=== PATIENT | male | born 1995 | race Caucasian/White ===

== ENCOUNTER 2020-05-06 09:19 | Emergency (ER) | payer OTHER, SELFPAY ==
[2020-05-06 09:29] VITALS: BP 104/60; PULSE 78; RESP 20; TEMP 36.7; O2SAT 100
--- NOTE | 2020-05-06 09:44 | ED.URI ---
HPI - URI/Sore Throat General Chief Complaint: Upper Respiratory Infection Stated Complaint: cough/sore throat/nausea Time Seen by Provider: 05/06/20 09:45 Source: patient and RN notes reviewed Mode of arrival: ambulatory Limitations: no limitations History of Present Illness HPI Narrative: 24 old male presents with concern for cough, sore throat. Reports exposure to strep throat. He denies any rhinorrhea, nasal congestion, fever, body aches, chills. Reports taking [id number] cough medicine with no relief MD elicited complaint: cough and sore throat Related Data Allergies Allergy/AdvReac Type Severity Reaction Status Date / Time No Known Allergies Allergy Unverified 05/06/20 09:40 Review of Systems Review of Systems: Narrative: CONSTITUTIONAL: Denies malaise, chills, sweats, or fever. EYES: Denies visual changes, redness, or discharge. ENT: Reports sore throat. Denies rhinorrhea, congestion, sinus pain, otalgia CARDIOVASCULAR: Denies chest pain, palpitations, or edema. RESPIRATORY: Reports cough. Denies dyspnea. GASTROINTESTINAL: Denies abdominal pain, nausea, vomiting, diarrhea SKIN: Denies rash or itching. MUSCULOSKELETAL: Denies myalgia. NEUROLOGIC: Denies headache. All systems reviewed & are unremarkable except as noted in HPI and below PMFSH Comments At time of signature, agree with nursing past medical, surgical, social and family history. There is no relevant family history pertinent to the presenting complaint Exam Narrative: Exam Narrative: GENERAL: Well-appearing, well-nourished, and in no acute distress. HEAD: Normocephalic EYES: PERRLA, conjunctivae clear ENT: Nares clear, turbinates erythematous, clear discharge. Mucous membranes moist. TM pearly kate with dull light reflex bilaterally; no tragal tenderness. Oropharynx mildly erythematous without lesions. Tonsils not enlarged and without exudate, no drooling, no hoarseness, no trismus, uvula midline. NECK: Supple. No lymphadenopathy CHEST: Clear to auscultation, breath sounds equal. No wheezing, rhonchi, rales, or stridor. No respiratory distress, speaks in full sentences. HEART: Regular rate and rhythm. No murmur heard. SKIN: Warm, dry, no rash. NEURO: Alert and oriented x3. PSYCH: Normal mood and affect Course Course Emergency Course: Patient is aware of diagnosis, understands and agrees to treatment plan. Anticipatory guidance given. Patient agrees to follow-up as directed and is aware of reasons to seek care at the emergency department. Portions of this record may have been created with voice recognition software Vital Signs Vital signs: Vital Signs Temperature 98.1 F 05/06/20 09:29 Pulse Rate 78 05/06/20 09:29 Respiratory Rate 20 05/06/20 09:29 Blood Pressure 104/60 05/06/20 09:29 Pulse Oximetry 100 05/06/20 09:29 Temperature 98.1 F 05/06/20 09:29 Pulse Rate 78 05/06/20 09:29 Respiratory Rate 20 05/06/20 09:29 Blood Pressure 104/60 05/06/20 09:29 Pulse Oximetry 100 05/06/20 09:29 Reviewed. MDM - URI/Sore Throat MDM Narrative Medical decision making narrative: Differential diagnosis considered: Coronavirus, strep pharyngitis, allergic rhinitis, upper respiratory tract infection, sinusitis, rhinosinusitis, nasopharyngitis. viral pharyngitis, otitis media, otitis externa, pneumonia, bronchitis, viral cough syndrome, viral syndrome, and influenza. Exam findings show no acute concerns or changes; patient is non-toxic appearing and is in no distress. Patient is appropriate for outpatient treatment and follow-up. Lab Data Attestation: I reviewed the patient's lab results. Labs: Strep Screen Presumptive Negative *(Reference Range: Negative)* Critical Care Time Critical Care Time Critical Care Time: No Discharge Plan Discharge Clinical Impression: Upper respiratory infection Qualifiers: URI type: unspecified URI Qualified Code(s): J06.9 - Acute upper respiratory infection,
== END 2020-05-06 10:08 | disposition home or self-care (01) ==
PROVIDERS: Emergency Provider Nurse Practitioner
DX: J06.9 Acute upper respiratory infection, unspecified (principal)
CPT/HCPCS: 87081; 87880; 99203; G0463

== ENCOUNTER 2021-06-15 09:50 | Emergency (ER) | payer OTHER, MEDICAID, SELFPAY ==
[2021-06-15 09:58] VITALS: BP 108/60; PULSE 78; RESP 14; TEMP 36.4; O2SAT 100
--- NOTE | 2021-06-15 10:51 | ED.URI ---
HPI - URI/Sore Throat General Chief Complaint: Upper Respiratory Infection Stated Complaint: sore throat cough Time Seen by Provider: 06/15/21 10:43 Source: patient and RN notes reviewed Mode of arrival: ambulatory Limitations: no limitations History of Present Illness HPI Narrative: Patient presents today complaining of sore throat, cough, rhinorrhea since yesterday. To patient's cancer home with strep throat. Denies fever. He is currently pain-free and has been taking Benadryl with some relief. MD elicited complaint: cough, sore throat and rhinorrhea Related Data Allergies Allergy/AdvReac Type Severity Reaction Status Date / Time No Known Allergies Allergy Unverified 05/06/20 09:40 Review of Systems Review of Systems: CONSTITUTIONAL: Denies body aches, fever, chills, or sweats. EYES: Denies visual changes, redness, or discharge. ENT: Denies congestion, or otalgia.+ Rhinorrhea, sore throat CARDIOVASCULAR: Denies chest pain, palpitations, or edema. RESPIRATORY: Denies dyspnea.+ Cough GASTROINTESTINAL: Denies abdominal pain, nausea, vomiting, or diarrhea. GENITOURINARY: Denies dysuria or hematuria. SKIN: Denies rash, itching, or wounds. MUSCULOSKELETAL: Denies back pain, joint pain, or myalgia. NEUROLOGIC: Denies headache, numbness, tingling, or weakness. PSYCH: Denies depression or anxiety. PMFSH Comments At time of signature, I have reviewed and agree with nursing past medical, surgical, social and family history unless otherwise noted. Please see nursing chart for further information. There is no relevant family history pertinent to the presenting complaint Exam Narrative: GENERAL: Well-appearing, well-nourished, and in no acute distress. HEAD: Normocephalic, atraumatic. EYES: EOMI. No redness or drainage. Conjunctivae normal. ENT: Mucous membranes pink and moist. Nares congested with rhinorrhea. Bilateral canals are occluded with cerumen impactions. Throat normal. Uvula midline. NECK: Normal AROM. Supple. No lymphadenopathy. CHEST: No respiratory distress. Clear to auscultation. HEART: Regular rate and rhythm. No murmur appreciated. Normal peripheral pulses. EXTREMITIES: Normal range of motion. No edema. SKIN: Warm, dry, no rash. Capillary refill normal. Normal skin turgor. NEURO: No focal deficits. Alert and oriented x3. Gait steady. PSYCH: Normal affect. No signs of depression or anxiety. Course Vital Signs Vital signs: Vital Signs Temperature 97.5 F L 06/15/21 09:58 Pulse Rate 78 06/15/21 09:58 Respiratory Rate 14 06/15/21 09:58 Blood Pressure 108/60 06/15/21 09:58 Pulse Oximetry 100 06/15/21 09:58 Temperature 97.5 F L 06/15/21 09:58 Pulse Rate 78 06/15/21 09:58 Respiratory Rate 14 06/15/21 09:58 Blood Pressure 108/60 06/15/21 09:58 Pulse Oximetry 100 06/15/21 09:58 Reviewed MDM - URI/Sore Throat Differential Diagnosis Differential diagnosis: Likely upper respiratory infection, sinusitis, viral infection, bronchitis, pharyngitis and other (Strep throat) Lab Data Attestation: I reviewed the patient's lab results. Labs: Strep Screen Presumptive Negative *(Reference Range: Negative)* Critical Care Time Critical Care Time Critical Care Time: No Discharge Plan Discharge Clinical Impression: Upper respiratory infection Qualifiers: URI type: unspecified URI Qualified Code(s): J06.9 - Acute upper respiratory infection, unspecified Patient Disposition: Home, Self-Care Condition: Stable Instructions: Upper Respiratory Infection (DC) Additional Instructions: Your rapid strep swab was negative today at [facility]. You will be notified in a few days if the culture comes back positive for strep, and appropriate antibiotics will be called in for you at that time. Your symptoms are likely due to a viral illness, which is not treated with antibiotics. Viral symptoms can be present for up to 10-14 day
== END 2021-06-15 11:01 | disposition home or self-care (01) ==
PROVIDERS: Emergency Provider Nurse Practitioner
DX: J06.9 Acute upper respiratory infection, unspecified (principal)
CPT/HCPCS: 87081; 87880; 99213; G0463

== ENCOUNTER 2022-02-01 17:10 | Emergency (ER) | payer OTHER, MEDICAID, SELFPAY ==
[2022-02-01 17:20] VITALS: BP 114/58; PULSE 103; RESP 16; O2SAT 98
--- NOTE | 2022-02-01 17:21 | ED.URI ---
HPI - URI/Sore Throat General Chief Complaint: Upper Respiratory Infection Stated Complaint: sore throat Time Seen by Provider: 02/01/22 17:21 Source: patient and RN notes reviewed History of Present Illness HPI Narrative: Patient is a 26-year-old male who presents the urgent care with complaints of sore throat and left swollen tonsil. Patient states that he noticed on Tuesday. Denies of any fever, nausea, vomiting. Patient has been taking Tylenol. Patient also reports that he has had thrush for many months and has been doing the swish and swallow. No other acute complaints. No acute distress noted. Patient aware of the plan of care. Some parts of this dictation were generated by voice recognition software and may contain typographical and/or grammatical inaccuracies. Related Data Home Medications Medication Instructions Recorded Confirmed No Home Medications 02/01/22 02/01/22 Allergies Allergy/AdvReac Type Severity Reaction Status Date / Time OFF BRAND RITALIN Allergy Unknown Uncoded 02/01/22 17:29 Review of Systems Review of Systems: CONSTITUTIONAL: Denies fever, chills, or sweats. EYES: Denies visual changes, redness, or discharge. ENT: Denies rhinorrhea, congestion, otalgia. Reports of sore throat and swollen left tonsil CARDIOVASCULAR: Denies chest pain, palpitations, or edema. RESPIRATORY: Denies cough or dyspnea. GASTROINTESTINAL: Denies abdominal pain, nausea, vomiting, or diarrhea. GENITOURINARY: Denies dysuria or hematuria. SKIN: Denies rash or itching. MUSCULOSKELETAL: Denies back pain, joint pain, or myalgia. NEUROLOGIC: Denies headache, numbness, or weakness. All other systems reviewed are negative, except as documented in HPI. PMFSH Comments At the time of my signature, I reviewed and agree with the nursing past medical, surgical, social, and family history. There is no relevant family history pertinent to the patient complaint. Exam Narrative: GENERAL: This is a well-nourished, well-developed patient, in no apparent distress. HEAD: normocephalic, atraumatic. EYES: PERRL. Sclera clear/white. Vision is grossly intact. EARS: External ears normal, auditory canals clear and without drainage, unable to visualize bilateral TMs due to cerumen impaction. Hearing grossly intact. NOSE: External nose normal with no obvious nasal discharge, nares without redness, no rhinorrhea. THROAT: Mucous membranes moist. Copious thrush to the surface of the tongue. Mild left tonsillar edema without tonsil stones or exudate. Mild postnasal drainage NECK: Neck supple, non-tender without lymphadenopathy CARDIOVASCULAR: Regular rate and rhythm without murmurs, gallops, or rubs. RESPIRATORY: Clear to auscultation. Breath sounds equal bilaterally. No wheezes, rales, or rhonchi. SKIN: warm, intact with no suspicious lesions or rash, good texture and turgor. NEURO: awake, alert, and oriented to person, place and time. There were no obvious focal neurologic abnormalities. EXTREMITIES: No clubbing, cyanosis, or edema. Course Course Level of Care: Express Care Visit Vital Signs Vital signs: Vital Signs Pulse Rate 103 H 02/01/22 17:20 Respiratory Rate 16 02/01/22 17:20 Blood Pressure 114/58 L 02/01/22 17:20 Pulse Oximetry 98 02/01/22 17:20 Pulse Rate 103 H 02/01/22 17:20 Respiratory Rate 16 02/01/22 17:20 Blood Pressure 114/58 L 02/01/22 17:20 Pulse Oximetry 98 02/01/22 17:20 Reviewed MDM - URI/Sore Throat MDM Narrative Medical decision making narrative: Reviewed lab results with the patient. He is aware that strep swab was negative. Educated patient on culture we will call within 72 hours if culture is positive and antibiotics are necessary. Continue your thrush treatment with the swish and swallow. Be sure that you are changing out your toothbrushes. If you develop any increase in symptoms associated with increased swelling, fever, difficulty swallowing?go to the emergency room. Follow-up w
== END 2022-02-01 17:43 | disposition home or self-care (01) ==
PROVIDERS: Emergency Provider Nurse Practitioner Family
DX: B37.0 Candidal stomatitis (principal); J02.9 Acute pharyngitis, unspecified
CPT/HCPCS: 87081; 87880; 99213; G0463

== ENCOUNTER 2022-02-19 11:36 | Emergency (ER) | payer MEDICAID, SELFPAY ==
[2022-02-19 11:40] VITALS: BP 103/65; PULSE 77; RESP 16; TEMP 37.1; O2SAT 100
--- NOTE | 2022-02-19 12:46 | ED.DENTAL ---
HPI - Dental/Oral General Chief complaint: Dental/Oral Stated complaint: tooth pain Time Seen by Provider: 02/19/22 12:20 Source: patient Mode of arrival: ambulatory Limitations: no limitations History of Present Illness HPI Narrative: 26-year-old male who has complaints of dental pain to the left posterior molars #18 and #19 with redness to gums with swelling with lateral edges of teeth broken. Patient reports that he has been using oral gel and also has been taking Tylenol and Ibuprofen with no relief in his pain. Patient reports that he has appointment at [facility] in one month which is soonest he can get in to been seen for either repair or extraction of teeth. No swelling noted to face, no difficulty with his breathing or swallowing. no trismus noted. MD Complaint: tooth pain and tooth injury Location: Tooth # (18,19) Onset (ago): day(s) (1) Treatment prior to arrival: topical analgesic and oral analgesic Related Data Allergies Allergy/AdvReac Type Severity Reaction Status Date / Time OFF BRAND RITALIN Allergy Unknown Uncoded 02/01/22 17:29 Review of Systems Review of Systems: CONSTITUTIONAL: Denies fever, chills, or sweats. EYES: Denies visual changes, redness, or discharge. ENT: Denies rhinorrhea, congestion, sore throat, or otalgia.positive for dental pain to left lower jaw around #18,#19 teeth CARDIOVASCULAR: Denies chest pain, palpitations, or edema. RESPIRATORY: Denies cough or dyspnea. GASTROINTESTINAL: Denies abdominal pain, nausea, vomiting, or diarrhea. GENITOURINARY: Denies dysuria or hematuria. SKIN: Denies rash or itching. MUSCULOSKELETAL: Denies back pain, joint pain, or myalgia. NEUROLOGIC: Denies headache, numbness, or weakness. PSYCHIATRIC: Denies anxiety or depression. [facility] Past Medical History Medical History (Updated 02/20/22 @ 21:37 by Kerrie Rubin NP) Strep throat Comments at time of signing agree with nursing documentation of past medical, surgical, social and family history. There is no relevant family history pertinent to presenting complai Exam Narrative: GENERAL: Well-appearing, well-nourished, and in no acute distress. HEAD: Normocephalic, atraumatic. EYES: PERRLA and EOMI. ENT: Nares clear, no rhinorrhea or epistaxis. Mucous membranes moist.TM's normal with good light reflex, throat pink with no lesions or swelling noted, dental gum redness and swelling aroung #18 and #19 teeth with lateral side of both teeth broken, no drainage noted. No Trismus or any Alan angina noted. No facial swelling NECK: Supple.no lymphadenopathy CHEST: Clear to auscultation. No respiratory distress.No tachypnea or any dyspnea, SAO2 100% on room air HEART: Regular rate and rhythm. No murmur heard. Normal peripheral pulses. ABDOMEN: Soft, nontender, nondistended, normal active bowel sounds. EXTREMITIES: Normal range of motion. No edema. SKIN: Warm, dry, no rash. NEURO: No focal deficits. Alert and oriented x3. Course Course Level of Care: Express Care Visit Vital Signs Vital signs: Vital Signs Temperature 37.1 C 02/19/22 11:40 Pulse Rate 77 02/19/22 11:40 Respiratory Rate 16 02/19/22 11:40 Blood Pressure 103/65 02/19/22 11:40 Pulse Oximetry 100 02/19/22 11:40 Oxygen Delivery Room Air 02/19/22 11:40 Temperature 37.1 C 02/19/22 11:40 Pulse Rate 77 02/19/22 11:40 Respiratory Rate 16 02/19/22 11:40 Blood Pressure 103/65 02/19/22 11:40 Pulse Oximetry 100 02/19/22 11:40 Oxygen Delivery Room Air 02/19/22 11:40 MDM - Dental/Oral Differential Diagnosis Differential diagnosis: Likely gingival abscess, dental caries, toothache, dental abscess and fracture of tooth Critical Care Time Critical Care Time Critical Care Time: No Discharge Plan Discharge Clinical Impression: Dental abscess, Fracture of tooth Patient Disposition: Home, Self-Care Condition: Stable Instructions: Antibiotic Form, Dental Abscess (ED) Additional Instructions: Av
== END 2022-02-19 13:14 | disposition home or self-care (01) ==
PROVIDERS: Emergency Provider Registered Nurse
DX: K04.7 Periapical abscess without sinus (principal); S02.5XXA Fracture of tooth (traumatic), initial encounter for closed fracture; T14.90XA Injury, unspecified, initial encounter
CPT/HCPCS: 99213; G0463

== ENCOUNTER 2023-10-31 15:41 | Emergency (ER) | payer OTHER, SELFPAY ==
[2023-10-31 15:48] VITALS: BP 111/69; PULSE 82; RESP 20; TEMP 36.8; O2SAT 100
--- NOTE | 2023-10-31 15:58 | ED.GENADULT ---
HPI - General Adult General Chief complaint: Urogenital-Male Stated complaint: Male problem Source: patient, RN notes reviewed and old records reviewed Mode of arrival: ambulatory Limitations: no limitations History of Present Illness HPI narrative: 27-year-old male patient presents to [facility] with complaints of painful sore on penis that he noted . Patient denies drainage. Patient denies urinary symptoms. Patient denies concerns for STDs Related Data Allergies Allergy/AdvReac Type Severity Reaction Status Date / Time OFF BRAND RITALIN Allergy Unknown Uncoded 02/01/22 17:29 Review of Systems Constitutional: Constitutional: Reports no additional constitutional complaints, Denies body ache(s), Denies chills, Denies fatigue, Denies fever(s) and Denies headache(s) Eyes: Eyes: Reports no additional eye complaints and Denies blurry vision ENT: Reports system reviewed and no additional complaints, except as documented, Denies vertigo, Denies dizziness, Denies ear discharge, Denies otalgia, Denies facial pain, Denies headache(s), Denies nasal congestion, Denies nasal discharge, Denies sinus pain, Denies sinus pressure and Denies sore throat Cardiovascular: Cardiovascular: Reports no additional cardiovascular complaints, Denies chest pain, Denies chest pain at rest, Denies rapid heart rate and Denies dyspnea Respiratory: Respiratory: Reports no additional respiratory complaints, Denies chest congestion, Denies cough, Denies pain on inspiration, Denies pain with cough and Denies dyspnea Gastrointestinal: Gastrointestinal: Denies abdominal pain, Denies diarrhea, Denies nausea and Denies vomiting Genitourinary: Genitourinary: Reports other ( sore on penis) Integumentary/Breasts: Skin/Breast: Denies rash Neurologic: Reports system reviewed and no additional complaints, except as documented, Denies vertigo, Denies dizziness and Denies headache(s) Endocrine: Endocrine: Denies fatigue PMFSH Past Medical History Medical History Strep throat Comments At the time of my signature, I reviewed and agree with the nursing past medical, surgical, social, and family history. There is no relevant family history pertinent to the patient complaint. Exam Const: General: cooperative, healthy appearing, no acute distress and well nourished Nutritional Appearance: well nourished Orientation/consciousness: patient oriented x3 Limitations: no limitations HENMT: Head: normal to inspection and normocephalic Ears: external ears normal, TM's normal bilaterally, mastoids normal and Abnormal EAC present Face/Nose/Sinus: normal facial exam Face and sinus: normal facial exam Mouth: Yes Normal oral and palatal mucosa present, Yes oropharynx normal and Yes moist mucous membranes Throat: tonsils normal, uvula midline and no uvular edema Eyes: General: appearance normal, both eyes and all related structures Sclera: sclerae normal Pupils: Equal, round and reactive pupils present Resp: Effort & Inspection: normal respiratory effort, able to speak in complete sentences, no audible wheezes, no cough, no respiratory distress and no retractions : General: Yes no CVA tenderness Penis: Yes circumcised, No ecchymosis, No edematous, No erythematous, No mass, No nodule, No papules, No priapism and Yes pustules Skin: General skin exam: normal color and no rashes or lesions noted Neuro: General: patient oriented x3 Cranial nerves: Yes Equal, round and reactive pupils present Psych: Appearance: grossly normal Mental Status: mental status grossly normal Speech and movement: Normal speech and movement present Affect: normal affect Course Course Emergency Course: Patient is aware of diagnosis, understands and agrees to treatment plan.? Anticipatory guidance given.? Patient agrees to follow-up as directed and is aware of reasons to seek care at the emergency department. Some parts of this di
== END 2023-10-31 16:06 | disposition home or self-care (01) ==
PROVIDERS: Emergency Provider Registered Nurse
DX: L73.9 Follicular disorder, unspecified (principal)
CPT/HCPCS: 99213; G0463

== ENCOUNTER 2024-03-01 13:40 | Emergency (ER) | payer OTHER, MEDICAID, SELFPAY ==
[2024-03-01 13:45] VITALS: BP 108/69; PULSE 94; RESP 20; TEMP 36.6; O2SAT 100
--- NOTE | 2024-03-01 13:57 | ED.WOUNDLAC ---
HPI - Wound/Laceration General Chief Complaint: Animal Bite Stated Complaint: Burn on right hand finger Time Seen by Provider: 03/01/24 13:58 Source: patient Mode of arrival: ambulatory Limitations: no limitations History of Present Illness HPI narrative: 28-year-old male presented for complaint of burn to the right middle finger sustained 2 days ago while at work. He states he touched a 400 degree piece of metal which resulted in the skin turning white and then blistering. Patient has continued to keep clean with soap and water. Has no other skin concerns. Endorses full range of motion and sensation to the finger. Unsure of his last tetanus. Related Data Allergies Allergy/AdvReac Type Severity Reaction Status Date / Time OFF BRAND RITALIN Allergy Unknown Uncoded 02/01/22 17:29 Review of Systems Review of Systems: CONSTITUTIONAL: Denies body aches, fever, chills, or sweats. CARDIOVASCULAR: Denies chest pain, palpitations, or edema. RESPIRATORY: Denies cough or dyspnea. GASTROINTESTINAL: Denies abdominal pain, nausea, vomiting, or diarrhea. SKIN: Reports blister to the right middle finger MUSCULOSKELETAL: Denies back pain, joint pain, or myalgia. NEUROLOGIC: Denies headache, numbness, tingling, or weakness. [facility] Past Medical History Medical History Strep throat Comments At time of signature, I have reviewed and agree with nursing past medical, surgical, social and family history unless otherwise noted. Please see nursing chart for further information. There is no relevant family history pertinent to the presenting complaint Exam Narrative: GENERAL: Well-appearing HEAD: Normocephalic, atraumatic. EYES: conjunctivae clear, and EOMI. ENT: Mucous membranes moist. Oropharynx without edema, erythema or lesions. NECK: Supple. No lymphadenopathy CHEST: Clear to auscultation. HEART: Regular rate and rhythm. SKIN: Warm, dry. right hand 3rd digit middle phalanx with approximately 1 cm diameter fluid filled blister. CMS intact. NEURO: Alert and oriented x3. Course Course Emergency Course: Patient is aware of diagnosis, understands and agrees to treatment plan. Anticipatory guidance given. Patient agrees to follow-up as directed and is aware of reasons to seek care at the emergency department. Portions of this record may have been created with voice recognition software Level of Care: Express Care Visit Vital Signs Vital signs: Reviewed MDM - Wound/Laceration MDM Narrative Medical decision making narrative: Discussed physical exam findings, tetanus updated. Per RN, a sterile needle was used to allow the blister to drain, the skin was left otherwise intact. Bandage applied. Advised supportive measures and signs/symptoms to go to the ER. Pt is appropriate for outpt treatment and f/u. Differential Diagnosis Differential diagnosis: Likely laceration, abscess, abrasion, avulsion of skin and other ( blister, burn, cellulitis) Discharge Plan Discharge Clinical Impression: Burn of finger Patient Disposition: Home, Self-Care Condition: Stable Instructions: Antibiotic Form, Second-Degree Burn (ED) Additional Instructions: Keep wound clean and dry; wash with gentle soap and water, apply Neosporin/bacitracin, nonadhesive bandage and wrap with gauze. Do not pop blisters, keep them covered. If it does break open, keep the area covered while draining and when at risk for contamination. Leave the wound open to the air as much as possible. Tylenol 1000mg every 8 hours as needed, alternate ibuprofen 800 mg every 8 hours as needed. tetanus updated today Follow up with your primary care provider, call tomorrow to schedule an appointment. Go to the ER for worsening symptoms or concerns Prescriptions: New cephalexin 500 mg capsule 500 mg PO Q12H 5 Days Qty: 10 0RF No Action sulfamethoxazole-trimethoprim [Bactrim DS] 800
[2024-03-01] MEDS: TETANUS,DIPHTHERIA,AC PERTUSSIS ADULT (0.5 ML) BOOSTRIX IM (14:13)
== END 2024-03-01 14:15 | disposition home or self-care (01) ==
PROVIDERS: Emergency Provider Nurse Practitioner Family
DX: T23.221A Burn of second degree of single right finger (nail) except thumb, initial encounter (principal); X19.XXXA Contact with other heat and hot substances, initial encounter; Z23 Encounter for immunization; J45.909 Unspecified asthma, uncomplicated; Z98.52 Vasectomy status
CPT/HCPCS: 10160; 90471; 90715; 99213; G0463